=== PATIENT | female | born 1975 | race Caucasian/White ===

== ENCOUNTER 2025-10-16 15:05 | Outpatient (CLI) | payer MEDICAID, SELFPAY | END 2025-10-16 15:06 | disposition home or self-care (01) | LOC: WOUND 15:06 | PROVIDERS: PCP Family Medicine; Referring Provider Family Medicine; Visit Provider Surgery | DX: S81.802A Unspecified open wound, left lower leg, initial encounter (principal); W22.8XXA Striking against or struck by other objects, initial encounter; E11.319 Type 2 diabetes mellitus with unspecified diabetic retinopathy without macular edema; I11.9 Hypertensive heart disease without heart failure; Z79.84 Long term (current) use of oral hypoglycemic drugs; Z86.73 Personal history of transient ischemic attack (TIA), and cerebral infarction without residual deficits | CPT/HCPCS: 97597; G0463 ==

== ENCOUNTER 2025-10-23 13:58 | Outpatient (CLI) | payer MEDICAID, SELFPAY | END 2025-10-23 13:59 | disposition home or self-care (01) | LOC: WOUND 13:58 | PROVIDERS: PCP Family Medicine; Visit Provider Surgery | DX: I11.9 Hypertensive heart disease without heart failure (principal); L97.222 Non-pressure chronic ulcer of left calf with fat layer exposed; E11.319 Type 2 diabetes mellitus with unspecified diabetic retinopathy without macular edema; Z79.84 Long term (current) use of oral hypoglycemic drugs | CPT/HCPCS: 97597 ==

== ENCOUNTER 2025-10-30 14:15 | Outpatient (CLI) | payer MEDICAID, SELFPAY | END 2025-10-30 14:16 | disposition home or self-care (01) | LOC: WOUND 14:15 | PROVIDERS: PCP Family Medicine; Visit Provider Surgery | DX: I11.9 Hypertensive heart disease without heart failure (principal); L97.222 Non-pressure chronic ulcer of left calf with fat layer exposed; E11.319 Type 2 diabetes mellitus with unspecified diabetic retinopathy without macular edema; Z79.84 Long term (current) use of oral hypoglycemic drugs | CPT/HCPCS: 11042 ==